=== PATIENT | female | born 1980 | race Caucasian/White ===

== ENCOUNTER 2020-10-04 17:52 | Emergency (ER) | payer BC ==
[2020-10-04] MEDS: Lactated Ringers 1,000 ML IV ONE (18:18)
[2020-10-04] MEDS: Ondansetron 4 MG/2 ML SDV IVPUSH PRN (18:22)
--- NOTE | 2020-10-04 18:23 | EDM.PDOC ---
ED HPI GENERAL MEDICAL PROBLEM - General Chief Complaint: General Stated Complaint: Hangover Time Seen by Provider: 10/04/20 18:00 Source of Information: Reports: Patient History Limitations: Reports: No Limitations - History of Present Illness INITIAL COMMENTS - FREE TEXT/NARRATIVE: Klaudia is a 40 year old female who presents to ER with complaints of "a bad hangover". She states she drank a great deal last night and "blacked out". Unable to drink or eat anything today due to ongoing vomiting. Starting to feel weak and dizzy. Has had symptoms like this in the past with drinking. States "has a ferreira about every 6 months and when I do I usually can't stop drinking". Denies headache. No fever. No abdominal pain. Mild diarrhea this am. No fevers. Onset: Today Duration: Hour(s):, Constant Location: Reports: Abdomen Improves with: Reports: None Worsens with: Reports: Eating Associated Symptoms: Reports: Nausea/Vomiting. Denies: Confusion, Chest Pain, Cough, Fever/Chills, Headaches, Loss of Appetite, Shortness of Breath - Related Data Allergies Allergy/AdvReac Type Severity Reaction Status Date / Time No Known Allergies Allergy Verified 10/04/20 18:55 Home Meds: Home Meds . [No Known Home Meds] 10/04/20 [History] Past Medical History - Past Health History Medical/Surgical History: Denies Medical/Surgical History Social & Family History - Tobacco Use Tobacco Use Status *Q: Unknown Ever Used Tobacco ED ROS GENERAL - Review of Systems Review Of Systems: See Below Constitutional: Reports: Malaise. Denies: Fever, Chills, Weakness, Fatigue, Decreased Appetite HEENT: Reports: No Symptoms Respiratory: Denies: Shortness of Breath, Cough Cardiovascular: Denies: Chest Pain Endocrine: Reports: Fatigue GI/Abdominal: Reports: Diarrhea, Nausea, Vomiting. Denies: Abdominal Pain : Reports: No Symptoms Musculoskeletal: Reports: No Symptoms Skin: Reports: No Symptoms Neurological: Reports: No Symptoms ED EXAM, GENERAL - Physical Exam Exam: See Below Exam Limited By: No Limitations General Appearance: Alert, WD/WN, No Apparent Distress Ears: Normal External Exam, Normal TMs Nose: Normal Inspection, Normal Mucosa, No Blood Throat/Mouth: Normal Inspection, Normal Oropharynx Head: Normocephalic Neck: Normal Inspection, Supple, Non-Tender Respiratory/Chest: No Respiratory Distress, Lungs Clear, Normal Breath Sounds Cardiovascular: Regular Rate, Rhythm GI/Abdominal: Normal Bowel Sounds, Soft, Non-Tender Extremities: Normal Inspection, No Pedal Edema Neurological: Alert, Oriented Skin Exam: Warm, Dry Course - Vital Signs Last Recorded V/S: Last Vital Signs Temp 99.0 F 10/04/20 18:00 Pulse 58 L 10/04/20 18:00 Resp 20 10/04/20 18:00 BP 114/62 10/04/20 18:00 Pulse Ox 97 10/04/20 18:00 - Orders/Labs/Meds Orders: Active Orders 24 hr Category Date Time Status Ondansetron [Zofran] Med 10/04/20 18:11 Active 4 mg IVPUSH Q6H PRN Medication Orders Ondansetron HCl (Ondansetron 4 Mg/2 Ml Sdv) 4 mg IVPUSH Q6H PRN PRN Reason: Nausea/Vomiting Last Admin: 10/04/20 18:22 Dose: 4 mg Documented by: Wingus: Medications Generic Name Dose Route Start Last Admin Trade Name Freq PRN Reason Stop Dose Admin Ondansetron HCl 4 mg 10/04/20 18:11 10/04/20 18:22 Ondansetron 4 Mg/2 Ml Sdv IVPUSH 4 mg Q6H PRN Administration Nausea/Vomiting Discontinued Medications Generic Name Dose Route Start Last Admin Trade Name Freq PRN Reason Stop Dose Admin Lactated Ringer's 1,000 mls @ 999 mls/hr 10/04/20 18:08 10/04/20 18:18 Ringers, Lactated IV 10/04/20 19:08 999 mls/hr .BOLUS ONE Administration - Re-Assessments/Exams Free Text/Narrative Re-Assessment/Exam: 10/04/20 19:14 Patient states is feeling better. Departure - Departure Time of Disposition: 19:15 Disposition: Home, Self-Care 01 Condition: Good Clinical Impression: Nausea and vomiting, Alcohol abuse - Discharge Information *PRESCRIPTION DRUG MONITORING PROGRAM REVIEWED*: No *COPY OF PRESCRIPTION DRUG MONITORING REPORT IN PATIENT KELLEE: No Instructions: Nausea, Adult, [id number] Forms: ED Department Discharge Additional Instructions: 1. Push fluid 2. [place]son diet 3. Rest 4. Zofran 4 mg every 6 hours as needed for nausea/vomiting 5. Follow up if any ongoing concerns. Sepsis Event Note (ED) - Focused Exam Vital Signs: Vital Signs Temp Pulse Resp BP Pulse Ox 10/04/20 18:00 99.0 F 58 L 20 114/62 97 - My Orders Last 24 Hours: My Active Orders 10/04/20 18:11 Ondansetron [Zofran] 4 mg IVPUSH Q6H PRN - Assessment/Plan Last 24 Hours: My Active Orders 10/04/20 18:11 Ondansetron [Zofran] 4 mg IVPUSH Q6H PRN
[2020-10-04] MEDS ORDERED: Ondansetron 4 MG Tab.DIS ONE (19:03)
[2020-10-04] MEDS ORDERED: Take Home: Ondansetron 4 MG Tab.DIS, 2 Tab Pack PO ONE (19:15)
== END 2020-10-04 19:30 | disposition home or self-care (01) ==
LOC: CC.ED 17:52
DX: R11.2 Nausea with vomiting, unspecified (principal); F10.10 Alcohol abuse, uncomplicated
CPT/HCPCS: 96374; 99283-25; A9270-GY; J2405; J7120

== ENCOUNTER 2024-09-30 10:14 | Emergency (ER) | payer BC ==
[2024-09-30] MEDS: Ondansetron 4 MG/2 ML SDV IVPUSH STA (10:45)
[2024-09-30] MEDS: Sodium Chloride 0.9% 1,000 ML IV ONE (10:45)
[2024-09-30] MEDS: Take Home: Ondansetron 4 MG Tab.DIS, 2 Tab Pack PO ONE (13:18)
== END 2024-09-30 13:06 | disposition home or self-care (01) ==
LOC: CC.ED 10:14
DX: F10.10 Alcohol abuse, uncomplicated (principal); R11.2 Nausea with vomiting, unspecified; Y90.9 Presence of alcohol in blood, level not specified
CPT/HCPCS: 96361; 96374; 99283; A9270; J2405; J7030